=== PATIENT | male | born 1935 | race Caucasian/White ===

== ENCOUNTER 2018-02-24 09:49 | Inpatient (IN) | payer OTHER ==
[2018-02-11 14:24] VITALS: BMI 18.0
--- NOTE | 2018-02-11 14:50 | PAT Medication Instructions ---
Service Date Feb 11, 2018. Current Home Medication List Amlodipine (Norvasc), 5 MG PO QAM Benazepril (Lotensin), 10 MG PO QAM Finasteride (Proscar), 5 MG PO QAM Multiple Vitamin (Multivitamin), 1 TAB PO QAM Medication Instructions For Your Scheduled Surgery - Hold the following medications the morning of surgery: Multiple Vitamin (Multivitamin), 1 TAB PO QAM Benazepril (Lotensin), 10 MG PO QAM - Take the following medications the morning of surgery with a sip of water: Amlodipine (Norvasc), 5 MG PO QAM Finasteride (Proscar), 5 MG PO QAM If you have any questions please call us at [phone] or [phone] or [phone]
--- NOTE | 2018-02-11 15:30 | DIAGNOSTIC IMAGING REPORT ---
CHEST 2 VIEWS ROUTINE CLINICAL HISTORY: Preoperative chest COMPARISON STUDY: No previous studies for comparison. FINDINGS: The patient is hyperinflated. Pulmonary emphysema is suspected. There is no focal pulmonary consolidation. There is no failure. There are no pleural effusions. The heart is normal in size.[ IMPRESSION: No active disease in the chest. Electronically signed by: Howard Edouard M.D. 02/11/2018 3:29 PM Dictated Date/Time: 02/11/2018 3:29 PM
[2018-02-11 15:44] LABS: BASO % 0.6 %; BASO ABS # 0.03 K/uL (0-0.2); EOS % 1.7 %; EOS ABS # 0.09 K/uL (0-0.5); HEMATOCRIT 42.7 % (42-52); HEMOGLOBIN 14.3 g/dL (14.0-18.0); IG# 0.01 K/uL (0.00-0.02); LYMPH % 16.6 %; LYMPH ABS # 0.89 K/uL (1.2-3.4); MEAN CELL VOLUME 90.5 fL (80-100); MEAN CORPUSCULAR HEMOGLOBIN 30.3 pg (25-34); MEAN CORPUSCULAR HGB CONC 33.5 g/dl (32-36); MEAN PLATELET VOLUME 11.2 fL (7.4-10.4); MONO % 10.8 %; MONO ABS # 0.58 K/uL (0.11-0.59); NEUT % 70.1 %; NEUT ABS # 3.76 K/uL (1.4-6.5); PLATELET COUNT 235 K/uL (130-400); RED CELL DISTRIBUTION WIDTH SD 46.5 fL (36.4-46.3); WHITE BLOOD COUNT 5.36 K/uL (4.8-10.8)
[2018-02-11 16:00] LABS: CALCIUM 9.2 mg/dl (8.5-10.1); CREATININE 0.99 mg/dl (0.60-1.40); POTASSIUM 4.2 mmol/L (3.5-5.1)
[2018-02-11 16:04] LABS: PTT PATIENT 25.9 SECONDS (21.0-31.0)
[2018-02-12 06:05] LABS: HEMOGLOBIN A1C 5.7 % (4.5-5.6)
--- NOTE | 2018-02-23 14:41 | History and Physical ---
History & Physical Date Feb 23, 2018. Chief Complaint Left hip pain and DJD History of Present Illness The patient is a 83 year old male with complaints of severe left hip pain and DJD which is failed conservative outpatient treatment measures to this point includes anti-inflammatories and a home walking exercise program. Patient's symptoms have progressed to the point where they are interfering with most daily activities and he no longer tolerate exercise programs. The pain and limited motion made it difficult to perform their activities of daily living. They continue to have swelling and painful limited range of motion with crepitation. There failed all forms of conservative treatments to this point and they are requesting to proceed with total hip replacement surgery. Past Medical/Surgical History Past medical history Hypertension BPH Allergies Coded Allergies: NO KNOWN DRUG ALLERGIES (Verified Allergy, Unknown, ., 02/24/18) Home Medications Scheduled Amlodipine (Norvasc), 5 MG PO QAM Benazepril (Lotensin), 10 MG PO QAM Finasteride (Proscar), 5 MG PO QAM Multiple Vitamin (Multivitamin), 1 TAB PO QAM Physical Examination Skin: warm/dry, no rash Eyes: normal inspection, EOMI, sclerae normal ENT: normal ENT inspection, pharynx normal Head: normocephalic, atraumatic Neck: supple, no adenopathy, trachea midline Respiratory/Chest: lungs clear, normal breath sounds, no respiratory distress Cardiovascular: regular rate, rhythm, no edema, no murmur Abdomen / GI: normal bowel sounds, non tender Back: normal inspection Extremities: + pertinent finding (Left lower extremity is neurovascular sensory intact, + EHL/FHL/TA/GS, +2 dorsalis pedis pulse, limited, painful passive and active range of motion of the left hip.) Neurologic/Psych: no motor/sensory deficits, alert, normal reflexes, oriented x 3 Diagnosis Severe left hip DJD Plan of Treatment I have indicated the patient for left anterior total hip arthroplasty. The risks benefits and complications of procedure include but not limited to infections, acute blood loss, blood clots, injury to surrounding nerves, vessels , bone and soft tissue, hip dislocation, leg length discrepancy, chronic pain, loss of function, need for additional surgery, loosening of the prosthesis, cardiac and pulmonary events and . Patient wished to proceed with surgical intervention and informed consent was obtained at this time. Appropriate medical clearances were obtained by his PCP. Postoperatively we will plan for aspirin twice daily for DVT prophylaxis. Postoperatively we will plan for home with home care upon discharge. Multiple views of the left hip demonstrate severe left hip DJD with complete loss of the joint space, there is significant osteophytes, sclerosis and subchondral cyst.
[~2018-02-24] VITALS: Ht 182.9 cm; Wt 62.4 kg
[2018-02-24] VITALS (7 sets, daily range): BP systolic 128–169; BP diastolic 62–82; PULSE 63–80; TEMP 35.7–36.9; O2SAT 98–100; BMI 18.0
[2018-02-24] MEDS: ROPIVACAINE 5MG/ML 30 ML 150 MG, BUPIVACAINE 0.5% MPF INJ 30 ML, EpINEphrine HCL INJ 0.... INFIL SCH ×16 (06:00→15:05)
[~2018-02-24 09:49] MED LIST: ACETAMINOPHEN 500 MG TAB PO SCH; AMLO5TAB3 PO; BENA10TA10 PO; BUPIVACAINE 0.5 % 5 MG/1 ML PF 10ML VIAL ONE; CEFAZOLIN 1000MG IV PUSH 7.5 ML IV SCH; CeleBREX 200 MG CAP PO SCH; DEXAMETHASONE 4 MG TAB PO SCH; FINA5TAB PO; GABAPENTIN 300 MG CAP PO SCH; LACTATED RINGER'S 1000ML 1,000 ML IV SCH; LACTATED RINGER'S 1000ML 500 ML IV SCH; METOCLOPRAMIDE HCL 10 MG TAB PO SCH; MULTTAB58 PO; ROPIVACAINE 5MG/ML 30 ML 150 MG, BUPIVACAINE 0.5% MPF INJ 30 ML, EpINEphrine HCL INJ 0.... INFIL SCH
[2018-02-24] MEDS ORDERED: FENTANYL CITRATE INJ 50 MCG/1 ML 2 ML VIAL ONE (10:01)
[2018-02-24] MEDS ORDERED: MIDAZOLAM HCL 1 MG/ML 2ML VIAL ONE (10:01)
[2018-02-24] MEDS ORDERED: PHENYLEPHRINE 100MCG/ML 5ML SYR ONE (10:01)
[2018-02-24] MEDS ORDERED: LIDOCAINE HCL 2% 2 ML VIAL (20MG/ML) ONE (10:01)
[2018-02-24] MEDS ORDERED: PROPOFOL IV EMULSION 10 MG/ML 20 ML VIAL ONE (10:01)
[2018-02-24] MEDS ORDERED: EpHEDrine SULFATE 50MG/5ML SYR ONE (10:01)
--- NOTE | 2018-02-24 12:11 | History & Physical Bridge Note ---
H&P Re-Evaluation Bridge Note: I have examined the patient, reviewed the History & Physical and in the interval since the performance of the History & Physical I have noted the following changes of clinical significance: No changes noted
[2018-02-24] MEDS ORDERED: ORTHO JOINT ANESTHETIC ONE (12:25)
[2018-02-24] MEDS ORDERED: BACITRACIN 50000 UNIT VIAL ONE (12:26)
[2018-02-24] MEDS ORDERED: POVIDONE-IODINE OP SOLN 30 ML BTL ONE (12:26)
[2018-02-24] MEDS: TRANEXAMIC ACID INJ 1,000 MG x 2 Bags IV SCH ×4 (12:33→17:50)
[2018-02-24] MEDS ORDERED: EpHEDrine SULFATE INJ 50 MG/ML AMP ONE (13:47)
--- NOTE | 2018-02-24 15:19 | [facility] Post Operative Brief Note ---
Immediate Operative Summary Operative Date Feb 24, 2018. Pre-Operative Diagnosis Severe Left Hip Degenerative Joint Disease Post-Operative Diagnosis Severe Left Hip Degenerative Joint Disease Procedure(s) Performed left anterior TONNY Surgeon Dr. Zimmerman Reservations Agent Surgeon(s) Vineet Wooten PA-C Estimated Blood Loss 125ML Findings Consistent with Post-Op Diagnosis Fluids (cc crystalloids) 1500 Specimens A. Left femoral head Drains None Anesthesia Type MAC Spinal Regional Complication(s) none Disposition Disposition: Recovery Room / PACU Overlapping Procedure I was present for: the critical portions of procedure. I was immediately available: during the entire case Back up surgeon: was not required during procedure
[2018-02-24] MEDS ORDERED: MoRPHine SULFATE 2 MG/ML CARP IV PRN (15:30)
[2018-02-24] MEDS ORDERED: ONDANSETRON INJ 2 MG/ML 2 ML VIAL IV PRN (15:30)
[2018-02-24] MEDS ORDERED: OXYCODONE HCL IR 5 MG TAB (IMMEDIATE RELEASE) PO PRN (15:30)
--- NOTE | 2018-02-24 15:41 | [facility] Operative Report ---
Operative Report Operative Date Feb 24, 2018. Pre-Operative Diagnosis Severe Left Hip Degenerative Joint Disease Post-Operative Diagnosis Severe Left Hip Degenerative Joint Disease Procedure(s) Performed left anterior TONNY Surgeon Dr. Zimmerman Quality Assurance Analyst Surgeon(s) Vineet Wooten PA-C Estimated Blood Loss 125ML Findings See dictated op note Fluids 1500 Specimens A. Left femoral head Drains None Anesthesia Type MAC Spinal Regional Complication(s) none Disposition Recovery Room / PACU Indications The patient is a 83-year-old male who presents with severe progressive left hip DJD who has failed outpatient conservative treatments. I indicated the patient for a anterior total hip replacement and the risks and benefits were explained in detail which include but not limited to infection, bleeding, blood clot, damage to surrounding bone, nerves, vessels, soft tissue, hip dislocation, failure of the prosthesis, leg length discrepancy, need for additional surgery and . The patient agreed to proceed with replacement of the hip and informed consent was obtained. Appropriate clearances were obtained. Description of Procedure COMPONENTS USED: [employer] hip system: Acetabulum size 52, femur size 10 standard offset, femoral head 36+0, liner 3652, acetabular screw 25. DESCRIPTION OF PROCEDURE: Following satisfactory spinal anesthesia, the patient was placed supine on the OR table. The right leg was placed in the well leg gallegos and the left leg in the traction device. The left leg was prepared with ChloraPrep and draped sterilely. Following a surgical time-out, an anterior approach in the interval between the sartorius and tensor muscles was completed. Circumflex femoral vessels were identified, tied and ligated. The anterior capsular fat pad was removed and the capsulotomy was performed revealing the arthritic femoral neck and head. A femoral neck cut was made with reciprocating saw and the bone fragments removed. The acetabular self- retraining retractor was placed. Acetabular reaming was completed under fluoroscopic guidance, a 52 shell was impacted into an anatomic position and secured with a dome screw. Local anesthetic was placed and following irrigation , the polyethylene liner was placed. The femur was placed into position of external rotation, extension and adduction. Femoral canal was prepared up to the size 10 standard offset. Trial reduction with a +0 neck length head showed good soft tissue tension, leg lengths restored, and good fit and fill of the proximal canal using fluoroscopic landmarks. The hip was dislocated. The trial component was removed. The final implant was placed. The hip was irrigated with sterile saline soluation and reduced. A Betadine soak was performed. After 3 minutes, the hip was once more irrigated with copious sterile saline solution with bacitracin. Stephanie- incisional soft tissue was injected utilizing [place] [facility] which includes a combination of Ropivicaine 0.5% 150mg, Bupivicaine 0.5%/Epinephrine 1 :200,000 30ml, Toradol 30mg, Dexamethasone 4mg, Ketamine 10mg, Clonidine 100mcg and NSS 30ml solution. The capsule was then closed with 1-0 Vicryl interrupted figure of eight sutures. The fascia was closed with a running suture of #1 Vicryl, the subcutaneous tissues with 2-0 Vicryl and the skin with a running subcuticular stitch of 3-0 V-Loc. Dermabond prineo and a dry dressing were applied. The patient tolerated the procedure well and was transported to PACU in stable condition. Due to the complex nature of the procedure, the entire surgery was performed with the operational assistance of Vineet Wooten PA-C. The assistant head cashier, under direct supervision, was involved in the actual performance of all aspects of the surgical procedure including patient positioning, hemostasis, tissue retraction, instrument management and wound closure. I attest to the content of the Intraoperative Record and any orders documented therein. Any exceptions are noted below.
[2018-02-24] MEDS ORDERED: EpHEDrine SULFATE INJ 50 MG/ML AMP IV PRN (16:00)
[2018-02-24] MEDS ORDERED: ATROPINE SULFATE 0.1 MG/ML 5ML SYR IV PRN (16:00)
--- NOTE | 2018-02-24 16:11 | DIAGNOSTIC IMAGING REPORT ---
L PELVIS/UNILATERAL HIP 1 VIEW CLINICAL HISTORY: IN PACU - A/P PELVIS and LATERAL HIP INCLUDING ALL OF IMPLANT joint replacement COMPARISON: None. DISCUSSION: Anatomic alignment post total left hip arthroplasty. Expected soft tissue postoperative changes. IMPRESSION: Anatomic alignment post total left hip arthroplasty. The above report was generated using voice recognition software. It may contain grammatical, syntax or spelling errors. Electronically signed by: Bala Arenas M.D. 02/24/2018 4:09 PM Dictated Date/Time: 02/24/2018 4:09 PM
--- NOTE | 2018-02-24 16:12 | Orthopedic Progress Note ---
Orthopedic Progress Note Date of Service Feb 24, 2018. Subjective Additional Notes: Postoperative progress note The patient was seen in PACU, comfortable, denies pain at this time, no acute issues, still feeling the effects of spinal anesthesia. Objective No apparent distress, alert and oriented 3 Physical exam: Limited secondary to spinal anesthesia Left lower extremity +2 dorsalis pedis pulse, compartments soft nontender, incisional VAC dressing clean dry and intact. Date Time Temp Pulse Resp B/P (MAP) Pulse Ox O2 Delivery O2 Flow Rate FiO2 02/24/18 16:06 137/69 02/24/18 16:03 72 18 100 02/24/18 16:03 75 18 02/24/18 16:01 140/72 02/24/18 15:58 73 15 02/24/18 15:58 73 15 99 02/24/18 15:56 138/67 02/24/18 15:53 79 17 02/24/18 15:53 79 17 100 02/24/18 15:51 143/69 02/24/18 15:49 138/66 02/24/18 15:48 36.9 78 16 138/66 (83) 100 Oxymask 10 02/24/18 10:15 36.9 80 20 169/82 98 Room Air Assessment & Plan Assessment: Status post left anterior total hip arthroplasty Plan: -Ancef 24 -DVT prophylaxis aspirin twice daily -Weight-bear as tolerates left lower extremity -PT OT -Postoperative x-ray demonstrate a well aligned well fixed total hip prosthesis without fracture dislocation -A.m. labs -DC planning
--- NOTE | 2018-02-24 16:31 | Anesthesiology Progress Note ---
Anesthesia Post Op Note Date & Time Feb 24, 2018 at 16:31 Vital Signs Pain Intensity: 0 Vital Signs Past 12 Hours Date Time Temp Pulse Resp B/P (MAP) Pulse Ox O2 Delivery O2 Flow Rate FiO2 02/24/18 16:16 140/66 02/24/18 16:13 75 19 02/24/18 16:13 77 19 100 02/24/18 16:11 127/68 02/24/18 16:10 37.0 73 17 140/66 (91) 100 Nasal Cannula 2 02/24/18 16:08 71 17 100 02/24/18 16:08 71 17 02/24/18 16:07 73 17 100 02/24/18 16:07 72 17 02/24/18 16:06 137/69 02/24/18 16:03 72 18 100 02/24/18 16:03 75 18 02/24/18 16:01 140/72 02/24/18 15:58 73 15 02/24/18 15:58 73 15 99 02/24/18 15:56 138/67 02/24/18 15:53 79 17 02/24/18 15:53 79 17 100 02/24/18 15:51 143/69 02/24/18 15:49 138/66 02/24/18 15:48 36.9 78 16 138/66 (83) 100 Oxymask 10 02/24/18 10:15 36.9 80 20 169/82 98 Room Air Notes Mental Status: alert / awake / arousable, participated in evaluation Pt Amnestic to Procedure: Yes Nausea / Vomiting: adequately controlled Pain: adequately controlled Airway Patency, RR, SpO2: stable & adequate BP & HR: stable & adequate Hydration State: stable & adequate Neuraxial Anesthesia: was administered, sensory block is resolving Anesthetic Complications: no major complications apparent
--- NOTE | 2018-02-24 16:55 | DIAGNOSTIC IMAGING REPORT ---
L HIP UNILATERAL 1 VIEW CLINICAL HISTORY: LT ANTERIOR TOTAL joint replacement COMPARISON: None. DISCUSSION: Anatomic alignment post left hip total arthroplasty. Expected postoperative soft tissue change. IMPRESSION: Anatomic alignment post total left hip arthroplasty. The above report was generated using voice recognition software. It may contain grammatical, syntax or spelling errors. Electronically signed by: Bala Arenas M.D. 02/24/2018 4:53 PM Dictated Date/Time: 02/24/2018 4:53 PM
[2018-02-24] MEDS: KETOROLAC TROMETHAMINE 15 MG/ML VIAL IV. SCH (18:21)
[2018-02-24] MEDS: SODIUM CHLORIDE 0.9% 1000ML 1,000 ML IV SCH (19:50)
[2018-02-24] MEDS: ASPIRIN 325 MG ECTAB PO SCH (20:56)
[2018-02-24] MEDS: SENNA 8.6 MG TAB PO SCH (20:57)
[2018-02-24] MEDS: DOCUSATE SODIUM 100 MG CAP PO SCH (20:57)
[2018-02-24] MEDS: ACETAMINOPHEN 500 MG TAB PO SCH (20:57)
[2018-02-24] MEDS: CEFAZOLIN IV 1,000 MG in SYRINGE 0 ML IV SCH (20:57)
[2018-02-25] MEDS: KETOROLAC TROMETHAMINE 15 MG/ML VIAL IV. SCH ×3 (00:03→12:43)
[2018-02-25 03:52] VITALS: BP 156/62; PULSE 75; TEMP 36.5; O2SAT 100
[2018-02-25] MEDS: CEFAZOLIN IV 1,000 MG in SYRINGE 0 ML IV SCH (05:26)
[2018-02-25] MEDS: ACETAMINOPHEN 500 MG TAB PO SCH ×3 (05:27→21:14)
[2018-02-25] MEDS: SODIUM CHLORIDE 0.9% 1000ML 1,000 ML IV SCH (05:27)
[2018-02-25 07:13] LABS: BASO % 0.1 %; BASO ABS # 0.01 K/uL (0-0.2); HEMOGLOBIN 12.6 g/dL (14.0-18.0); IG# 0.04 K/uL (0.00-0.02); LYMPH % 3.6 %; LYMPH ABS # 0.43 K/uL (1.2-3.4); MEAN CELL VOLUME 89.6 fL (80-100); MEAN CORPUSCULAR HEMOGLOBIN 29.7 pg (25-34); MEAN CORPUSCULAR HGB CONC 33.2 g/dl (32-36); MEAN PLATELET VOLUME 11.3 fL (7.4-10.4); MONO % 7.5 %; NEUT % 88.5 %; NEUT ABS # 10.68 K/uL (1.4-6.5); PLATELET COUNT 213 K/uL (130-400); RED CELL DISTRIBUTION WIDTH SD 45.8 fL (36.4-46.3); WHITE BLOOD COUNT 12.06 K/uL (4.8-10.8)
[2018-02-25 07:18] VITALS: BP 146/69; PULSE 69; TEMP 36.6; O2SAT 99
[2018-02-25 07:19] LABS: INR 1.1 (0.9-1.1)
[2018-02-25 07:45] LABS: CALCIUM 8.6 mg/dl (8.5-10.1); CREATININE 0.99 mg/dl (0.60-1.40); POTASSIUM 4.5 mmol/L (3.5-5.1)
--- NOTE | 2018-02-25 08:03 | Orthopedic Progress Note ---
Orthopedic Progress Note Date of Service Feb 25, 2018. Subjective Post OP Day: 1 Reports: feeling well, complaints (mild burning on urination), Denies: chest pain, SOB, nausea / vomiting, light headedness, calf pain Objective calves soft nontender, N/V intact, hip located, dressing C/D/I, A&O x3, toes mobile Date Time Temp Pulse Resp B/P (MAP) Pulse Ox O2 Delivery O2 Flow Rate FiO2 02/25/18 07:18 36.6 69 16 146/69 (94) 99 Room Air 02/25/18 03:52 36.5 75 16 156/62 (93) 100 Room Air 02/25/18 00:05 Room Air 02/24/18 23:21 36.7 63 16 143/69 (93) 100 Room Air 02/24/18 19:50 72 15 128/65 (86) 100 Room Air 02/24/18 18:54 36.3 68 18 130/71 (90) 100 Nasal Cannula 2.0 02/24/18 17:49 36.4 74 17 137/62 (87) 100 Nasal Cannula 2.0 02/24/18 17:15 35.7 76 16 143/69 (93) 100 Nasal Cannula 2.0 02/24/18 16:45 36.4 71 16 144/69 (94) 99 Nasal Cannula 2.0 02/24/18 16:45 99 Nasal Cannula 2.0 02/24/18 16:45 99 Nasal Cannula 2.0 02/24/18 16:37 75 100 02/24/18 16:37 75 02/24/18 16:36 133/73 02/24/18 16:32 73 12 100 02/24/18 16:32 73 12 02/24/18 16:31 133/66 02/24/18 16:27 75 16 100 02/24/18 16:27 75 16 02/24/18 16:26 136/65 02/24/18 16:22 71 16 02/24/18 16:22 71 16 100 02/24/18 16:21 137/65 02/24/18 16:17 72 14 02/24/18 16:17 72 14 100 02/24/18 16:16 140/66 02/24/18 16:13 75 19 02/24/18 16:13 77 19 100 02/24/18 16:11 127/68 02/24/18 16:10 37.0 73 17 140/66 (91) 100 Nasal Cannula 2 02/24/18 16:08 71 17 100 02/24/18 16:08 71 17 02/24/18 16:07 73 17 100 02/24/18 16:07 72 17 02/24/18 16:06 137/69 02/24/18 16:03 72 18 100 02/24/18 16:03 75 18 02/24/18 16:01 140/72 02/24/18 15:58 73 15 02/24/18 15:58 73 15 99 02/24/18 15:56 138/67 02/24/18 15:53 79 17 02/24/18 15:53 79 17 100 02/24/18 15:51 143/69 02/24/18 15:49 138/66 02/24/18 15:48 36.9 78 16 138/66 (83) 100 Oxymask 10 02/24/18 10:15 36.9 80 20 169/82 98 Room Air Laboratory Results 24 Hours: Test 02/25/18 06:28 White Blood Count 12.06 K/uL Red Blood Count 4.24 M/uL Hemoglobin 12.6 g/dL Hematocrit 38.0 % Mean Corpuscular Volume 89.6 fL Mean Corpuscular Hemoglobin 29.7 pg Mean Corpuscular Hemoglobin Concent 33.2 g/dl Platelet Count 213 K/uL Mean Platelet Volume 11.3 fL Neutrophils (%) (Auto) 88.5 % Lymphocytes (%) (Auto) 3.6 % Monocytes (%) (Auto) 7.5 % Eosinophils (%) (Auto) 0.0 % Basophils (%) (Auto) 0.1 % Neutrophils # (Auto) 10.68 K/uL Lymphocytes # (Auto) 0.43 K/uL Monocytes # (Auto) 0.90 K/uL Eosinophils # (Auto) 0.00 K/uL Basophils # (Auto) 0.01 K/uL Prothromb Time International Ratio 1.1 Prothrombin Time 11.4 SECONDS Assessment & Plan Assessment: POD 1 s/p Left TONYN Plan: -Ancef 24 -DVT prophylaxis aspirin twice daily -Weight-bear as tolerates left lower extremity -PT OT -DC planning - HH Inhouse Planning Pain Management: Celebrex, Toradol, Morphine, Oxy IR DVT Prophylaxis: TEDs, SCDs, ASA Discharge Planning Discharge Planning: home with home health
[2018-02-25] MEDS: PANTOprazole SOD 40 MG TAB PO SCH (08:14)
[2018-02-25] MEDS: DOCUSATE SODIUM 100 MG CAP PO SCH ×2 (08:14→21:00)
[2018-02-25] MEDS: FINASTERIDE 5 MG TAB PO SCH (08:14)
[2018-02-25] MEDS: BENAZEPRIL HCL 10 MG TAB PO SCH (08:14)
[2018-02-25] MEDS: MULTIVITAMIN TAB PO SCH (08:15)
[2018-02-25] MEDS: AMLODIPINE BESYLATE 5 MG TAB PO SCH (08:15)
[2018-02-25] MEDS: ASPIRIN 325 MG ECTAB PO SCH ×2 (08:15→21:13)
--- NOTE | 2018-02-25 09:57 | Anesthesiology Progress Note ---
Anesthesia Post Op Note Date & Time Feb 25, 2018 at 09:56 Vital Signs Pain Intensity: 0.0 Vital Signs Past 12 Hours Date Time Temp Pulse Resp B/P (MAP) Pulse Ox O2 Delivery O2 Flow Rate FiO2 02/25/18 07:18 36.6 69 16 146/69 (94) 99 Room Air 02/25/18 03:52 36.5 75 16 156/62 (93) 100 Room Air 02/25/18 00:05 Room Air 02/24/18 23:21 36.7 63 16 143/69 (93) 100 Room Air Notes Mental Status: alert / awake / arousable, participated in evaluation Pt Amnestic to Procedure: Yes Nausea / Vomiting: adequately controlled Pain: adequately controlled Airway Patency, RR, SpO2: stable & adequate BP & HR: stable & adequate Hydration State: stable & adequate Neuraxial Anesthesia: sensory block resolved Anesthetic Complications: no major complications apparent
[2018-02-25 10:04] VITALS: Ht 182.9 cm; Wt 62.4 kg
[2018-02-25] MEDS ORDERED: NURSING VERBAL MED ORDER ONE (11:00)
[2018-02-25 11:55] VITALS: BP 159/68; PULSE 82; TEMP 36.4; O2SAT 99
[2018-02-25 15:52] VITALS: BP 148/63; PULSE 83; TEMP 36.6; O2SAT 97
[2018-02-25] MEDS ORDERED: GLUCOSE 40% GEL 15 GM TUBE PO PRN (16:45)
[2018-02-25] MEDS ORDERED: CARBOHYDRATES FOR HYPOGLYCEMIA PO PRN (16:45)
[2018-02-25] MEDS ORDERED: DEXTROSE 50% 50 ML SYR IV PRN (16:45)
[2018-02-25] MEDS ORDERED: GLUCOSE 10 TABS/TUBE PO PRN (16:45)
[2018-02-25] MEDS ORDERED: GLUCAGON FOR INJ 1 MG VIAL SQ PRN (16:45)
--- NOTE | 2018-02-25 17:00 | Medical Consult ---
Consultation Date of Consultation: Feb 25, 2018. Attending Physician: Dandy Zimmerman D.O. 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 Zimmerman. He had no postoperative complications. 125ml of blood loss was estimated. Patient denies history of diabetes mellitus as well as family history. Denies fever, chills, sweats, lightheadedness, dizziness, chest pain, shortness of breath, cough, nausea, vomiting, diarrhea. He had normal bowel movement today. Starting last evening he did have increased frequency, urgency with urination and dysuria. UA was obtained and was negative. Nursing noted 600 cc retained urine, patient with straight cath. He noted ever since straight cath he no longer is having frequency, urgency and dysuria. Appetite is good. He ambulated around unit 2 today. Denies left hip pain. "I was supposed to go home today, but my blood sugar was high." Fasting glucose this a.m. was greater than 200, most recent 175. A1c was 5.7. We have been consulted secondary to new onset hyperglycemia. 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) Allergies Coded Allergies: NO KNOWN DRUG ALLERGIES (Verified Allergy, Unknown, ., 02/24/18) Home Medications Active Reported Multivitamin (Multiple Vitamin) 1 Tab Tab 1 Tab PO QAM Proscar (Finasteride) 5 Mg Tab 5 Mg PO QAM Lotensin (Benazepril HCl) 10 Mg Tab 10 Mg PO QAM Norvasc (Amlodipine Besylate) 5 Mg Tab 5 Mg PO QAM Current Inpatient Medications Current Inpatient Medications Medications (Trade) Dose Ordered Sig/Dennys Route Start Time Stop Time Status Last Admin Dose Admin Amlodipine Besylate (Norvasc Tab) 5 mg QAM PO 02/25/18 09:00 03/27/18 08:59 02/25/18 08:15 5 MG Finasteride (Proscar Tab) 5 mg QAM PO 02/25/18 09:00 03/27/18 08:59 02/25/18 08:14 5 MG Benazepril HCl (Lotensin Tab) 10 mg QAM PO 02/25/18 09:00 03/27/18 08:59 02/25/18 08:14 10 MG Ketorolac Tromethamine (Toradol Inj) 15 mg Q6H IV. 02/24/18 18:00 02/25/18 17:59 02/25/18 12:43 15 MG Celecoxib (CeleBREX CAP) 200 mg BID PO 02/26/18 09:00 03/28/18 08:59 Oxycodone HCl (Roxicodone Immediate Rel Tab) 1 TABLET FOR PAIN RATING... Q4H PRN PO 02/24/18 15:30 03/10/18 15:29 Morphine Sulfate (MoRPHine SULFATE INJ) 2 mg Q4H PRN IV 02/24/18 15:30 03/10/18 15:29 Acetaminophen (Tylenol Tab) 1,000 mg Q8H PO 02/24/18 22:00 03/26/18 21:59 02/25/18 12:44 1,000 MG Senna (Senokot Tab) 17.2 mg HS PO 02/24/18 21:00 03/26/18 20:59 02/24/18 20:57 17.2 MG Docusate Sodium (coLACE CAP) 100 mg BID PO 02/24/18 21:00 03/26/18 20:59 02/25/18 08:14 100 MG Diphenhydramine HCl (Benadryl Cap) 25 mg Q8H PRN PO 02/24/18 15:30 03/26/18 15:29 Multivitamins (Multivitamin Tab) 1 tab QAM PO 02/25/18 09:00 03/27/18 08:59 02/25/18 08:15 1 TAB Ondansetron HCl (Zofran Inj) 4 mg Q6H PRN IV 02/24/18 15:30 03/26/18 15:29 Pantoprazole Sodium (Protonix Tab) 40 mg QAM PO 02/25/18 09:00 02/28/18 09:01 02/25/18 08:14 40 MG Aspirin (Ecotrin Tab) 325 mg BID PO 02/24/18 21:00 03/26/18 20:59 02/25/18 08:15 325 MG Review of Systems As noted per HPI, 10 systems reviewed and negative unless noted above. Physical Exam Date Time Temp Pulse Resp B/P (MAP) Pulse Ox O2 Delivery O2 Flow Rate FiO2 02/25/18 15:52 36.6 83 16 148/63 (91) 97 Room Air 02/25/18 11:55 36.4 82 16 159/68 (98) 99 Room Air 02/25/18 08:00 Room Air 02/25/18 07:18 36.6 69 16 146/69 (94) 99 Room Air 02/25/18 03:52 36.5 75 16 156/62 (93) 100 Room Air 02/25/18 00:05 Room Air 02/24/18 23:21 36.7 63 16 143/69 (93) 100 Room Air 02/24/18 19:50 72 15 128/65 (86) 100 Room Air 02/24/18 18:54 36.3 68 18 130/71 (90) 100 Nasal Cannula 2.0 02/24/18 17:49 36.4 74 17 137/62 (87) 100 Nasal Cannula 2.0 02/24/18 17:15 35.7 76 16 143/69 (93) 100 Nasal Cannula 2.0 02/24/18 16:45 36.4 71 16 144/69 (94) 99 Nasal Cannula 2.0 02/24/18 16:45 99 Nasal Cannula 2.0 02/24/18 16:45 99 Nasal Cannula 2.0 02/24/18 16:37 75 100 02/24/18 16:37 75 02/24/18 16:36 133/73 General Appearance: no apparent distress, + thin (Tall, Male) Head: normocephalic, atraumatic Eyes: normal inspection, sclerae normal ENT: normal ENT inspection, hearing grossly normal, + pertinent finding ( mucous membranes moist) Neck: supple, no adenopathy, thyroid normal, no JVD, no carotid bruits Respiratory/Chest: chest non-tender, lungs clear, normal breath sounds, no respiratory distress, no accessory muscle use Cardiovascular: regular rate, rhythm, no edema, no JVD, no murmur, normal peripheral pulses (b/l SCDS in placed) Abdomen/GI: normal bowel sounds, non tender, soft, no organomegaly Back: normal inspection, no muscle spasm Extremities/Musculoskelatal: + pertinent finding (+ Anterior Left wound vac in placed) Neurologic/Psych: 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, alert, normal mood/affect, oriented x 3 Skin: normal color, no rash Laboratory Results Last 24 Hours Test 02/25/18 06:28 02/25/18 09:20 02/25/18 12:16 White Blood Count 12.06 K/uL Red Blood Count 4.24 M/uL Hemoglobin 12.6 g/dL Hematocrit 38.0 % Mean Corpuscular Volume 89.6 fL Mean Corpuscular Hemoglobin 29.7 pg Mean Corpuscular Hemoglobin Concent 33.2 g/dl Platelet Count 213 K/uL Mean Platelet Volume 11.3 fL Neutrophils (%) (Auto) 88.5 % Lymphocytes (%) (Auto) 3.6 % Monocytes (%) (Auto) 7.5 % Eosinophils (%) (Auto) 0.0 % Basophils (%) (Auto) 0.1 % Neutrophils # (Auto) 10.68 K/uL Lymphocytes # (Auto) 0.43 K/uL Monocytes # (Auto) 0.90 K/uL Eosinophils # (Auto) 0.00 K/uL Basophils # (Auto) 0.01 K/uL RDW Standard Deviation 45.8 fL RDW Coefficient of Variation 14.0 % Immature Granulocyte % (Auto) 0.3 % Immature Granulocyte # (Auto) 0.04 K/uL Prothrombin Time 11.4 SECONDS Prothromb Time International Ratio 1.1 Sodium Level 137 mmol/L Potassium Level 4.5 mmol/L Chloride Level 105 mmol/L Carbon Dioxide Level 25 mmol/L Anion Gap 7.0 mmol/L Blood Urea Nitrogen 22 mg/dl Creatinine 0.99 mg/dl Est Creatinine Clear Calc Drug Dose 49.0 ml/min Estimated GFR () 80.7 Estimated GFR (Non- 69.6 BUN/Creatinine Ratio 22.1 Random Glucose 210 mg/dl Calcium Level 8.6 mg/dl Urine Color YELLOW Urine Appearance CLEAR Urine pH 5.0 Urine Specific [place] 1.020 Urine Protein NEG Urine Glucose (UA) 1+ Urine Ketones NEG Urine Occult Blood NEG Urine Nitrite NEG Urine Bilirubin NEG Urine Urobilinogen NEG Urine Leukocyte Esterase NEG Bedside Glucose 175 mg/dl Assessment & Plan This is an 83-year-old white male who has significant PMH of HTN, BPH, 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 Zimmerman. He denies history of diabetes mellitus. A1c checked today was 5.7. We have been consulted for postoperative hyperglycemia. S/P L TONNY secondary to end stage OADJD POD #1 -Pain/wound management per Ortho -Continue incentive spirometry -ASA 325 twice daily for VT prophylaxis -Continue PT Postoperative hyperglycemia secondary to steroids A1C 5.7 -Etiology includes steroid-induced secondary to Decadron preop, stress of operation, infection -Infection appears less likely although WBC elevated to 12. Afebrile, UA is negative, saturating well on room air with no respiratory complaints and Anterior VAC intact -Add insulin sliding scale and monitor blood sugars accordingly -Recommend follow-up with PCP in 3 months for repeat A1c -repeat labs in a.m. Hypertension bp on high side, most likely secondary to pain. Monitor -Continue amlodipine and benazepril BPH -Continue Proscar -Continue as needed bladder scan as well as straight cath -UA negative for infection -Consider adding Pyridium if dysuria continues DVT prophylaxis - ASA BID per ortho Attending addendum: The patient was seen and examined in medical floor He is a status post left TONNY with high blood sugar noted following surgery He denies to have any symptoms except pain at the operation site On examination No apparent distress at rest Hemodynamically stable Chest-clear to auscultate bilaterally Heart-S1-S2 no murmur appreciated Abdomen-soft, benign, nontender, no organomegaly Extremities-negative for any edema Labs, imaging studies reviewed Has hyperglycemia secondary to steroid Continue sliding-scale insulin coverage for now Will likely not require any antidiabetic medications to go Agree with assessment and plan as outlined above Dr. Herlinda Spain Thank you for this consultation. We will follow the patient with you during their hospital stay. You can reach a [facility]/02 via pager @ . Starting on 02/26/18 Dr. Perez will continue care of patient
[2018-02-25] MEDS: INSULIN ASPART 100 UNITS/ML 3 ML PEN SC SCH ×3 (19:00→21:00)
[2018-02-25] MEDS: SENNA 8.6 MG TAB PO SCH (21:00)
[2018-02-25 23:00] VITALS: BP 131/61; PULSE 83; TEMP 37.2; O2SAT 98
[2018-02-26] MEDS: ACETAMINOPHEN 500 MG TAB PO SCH ×2 (06:07→14:07)
[2018-02-26 07:20] VITALS: BP 168/67; PULSE 85; TEMP 36.9; O2SAT 97
[2018-02-26] MEDS: INSULIN ASPART 100 UNITS/ML 3 ML PEN SC SCH ×3 (08:00→12:00)
[2018-02-26] MEDS: MULTIVITAMIN TAB PO SCH (08:28)
[2018-02-26] MEDS: AMLODIPINE BESYLATE 5 MG TAB PO SCH (08:28)
[2018-02-26] MEDS: PANTOprazole SOD 40 MG TAB PO SCH (08:28)
[2018-02-26] MEDS: BENAZEPRIL HCL 10 MG TAB PO SCH (08:29)
[2018-02-26] MEDS: DOCUSATE SODIUM 100 MG CAP PO SCH (08:29)
[2018-02-26] MEDS: ASPIRIN 325 MG ECTAB PO SCH (08:29)
[2018-02-26] MEDS: FINASTERIDE 5 MG TAB PO SCH (08:30)
--- NOTE | 2018-02-26 08:58 | Orthopedic Progress Note ---
Orthopedic Progress Note Date of Service Feb 26, 2018. Subjective Reports: feeling well, complaints (urinary retention) Additional Notes: Pt states he thought he was doing well after being straight cathed yesterday. Was urinating on his own initially however as time progressed, he states he began having trouble urinating again. Tried several times over night but was "just dribbling". This AM nursing did a bladder scan which showed 900 + cc retained post void. Previous scan was around 800cc. Denies being uncomfortable but frustrated over not being able to go. States his knee feels fine this AM. No other complaints. Objective calves soft nontender, N/V intact, dressing C/D/I, A&O x3, toes mobile Date Time Temp Pulse Resp B/P (MAP) Pulse Ox O2 Delivery O2 Flow Rate FiO2 02/26/18 08:42 Room Air 02/26/18 07:20 36.9 85 18 168/67 (100) 97 Room Air 02/25/18 23:00 37.2 83 16 131/61 (84) 98 Room Air 02/25/18 19:45 Room Air 02/25/18 15:52 36.6 83 16 148/63 (91) 97 Room Air 02/25/18 11:55 36.4 82 16 159/68 (98) 99 Room Air Assessment & Plan Assessment: POD 2 s/p Left TONNY Urinary Retention/ h/o BPH Hyperglycemia Plan: -Ancef 24 -DVT prophylaxis aspirin twice daily -Weight-bear as tolerates left lower extremity -PT OT -Place bennett catheter. Will consult Urology. -Medical management per [facility] Hospitalist appreciated -DC planning - Inhouse Planning Pain Management: Celebrex, Morphine, Oxy IR DVT Prophylaxis: TEDs, SCDs, ASA Discharge Planning Discharge Planning: home with home health
[2018-02-26] MEDS ORDERED: CeleBREX 200 MG CAP PO SCH (09:00)
[2018-02-26] MEDS ORDERED: CLB200 PO (09:05)
[2018-02-26] MEDS ORDERED: RXC5 PO (09:05)
[2018-02-26] MEDS ORDERED: SENN-61 PO (09:05)
[2018-02-26] MEDS ORDERED: ASPEC325 PO (09:05)
[2018-02-26] MEDS ORDERED: ACET-24 PO (09:05)
--- NOTE | 2018-02-26 09:11 | Discharge Instructions ---
Discharge Instructions Date of Service Feb 26, 2018. Admission Reason for Admission: Left Hip Osteoarthritis Discharge Discharge Diagnosis / Problem: Left Hip Osteoarthritis Discharge Goals Goal(s): Decrease discomfort, Improve function, Increase independence Activity Recommendations Activity Limitations: per Instructions/Follow-up section Weightbearing Status: Left weightbearing (as tolerated) . Instructions / Follow-Up Instructions / Follow-Up ACTIVITY RECOMMENDATIONS: SELF CARE INSTRUCTIONS AFTER TOTAL HIP REPLACEMENT : Direct Anterior Approach Until the incision and soft tissues around your hip have healed, there is a possibility that the hip prosthesis could dislocate. A. Hip flexion ( Up & Down out of chair or steps ) may be difficult. This is normal. B. Numbness in front of the thigh is also normal for a few weeks. C. Use hand rails when walking on stairs. D. Wear low heeled shoes with non-slip soles. E. Be sure that your floors are free of things that could trip you - throw rugs , electrical cords, small objects. Avoid wet and waxed floors, especially with crutches and canes. F. Try to walk several times a day with rest periods between. G. Continue with all the exercises taught to you in the hospital. Again, make walking a part of your daily routine. SPECIAL CARE INSTRUCTIONS: VERY IMPORTANT TO READ AND REVIEW A. You may still be at risk for phlebitis and blood clots. 1. Wear surgical stockings (DANIELE hose) for 2 weeks after surgery to improve circulation and reduce swelling. 2. Take Aspirin 325mg twice daily for 4 weeks or as directed by your doctor. This is your blood thinner. 3. High risk patients may be prescribed a stronger blood thinner if necessary. 4. If you are on Coumadin normally, your family doctor/sand cleaning machine operator should monitor your blood work. Expect a phone call the day of or the day after bloodwork is drawn to adjust your dosage. B. You must take antibiotics before having dental work, bladder, bowel and other surgery. Your doctor will provide you with a permanent card to carry describing precautions. C. Call [facility] if you have a fever, redness or swelling around the incision, cloudy drainage from incision, or sudden increase in pain in your hip, not relieved by your regular pain medication. D. Please call the office at if you have any concerns or questions about your operation or recovery. * YOU MAY SHOWER, NO TUB BATHS UNTIL CLEARED BY YOUR DOCTOR. - Keep an extra close eye on the top portion of your incision. Be sure to keep clean & dry. * WEAR DANIELE HOSE 20 HOURS PER DAY FOR 2 WEEKS. * YOU MAY PROGRESS FROM A WALKER, TO A CANE, TO INDEPENDENT AT YOUR OWN PACE. * MOST PATIENTS WILL HAVE HOME NURSING FOR THERAPY. IF YOU DECIDE TO DO OUTPATIENT PHYSICAL THERAPY, PLEASE SCHEDULE THIS 3 TIMES PER WEEK. * DERMABOND Prineo- This is a mesh tape dressing that is covered with glue. It should remain in place until the incision is properly healed, usually 10-14 days. This dressing is designed to naturally slough off. You may trim the excess mesh tape as it peels off. Incision may be briefly wet in a shower. Dry immediately by blotting with a clean, dry towel. Do not bath or swim until instructed by your doctor. Do not scratch, rub, or pick at the dressing. Do not apply any topical ointments or lotions until dressing is completely removed and/or instructed by your doctor. There may be a small piece of suture material at one end of your incision. Do not pull or trim this. If it is bothersome or catching on clothing, you may cover it with a band-aid. * Prevena- This is a large suction dressing covering your incision. This will help pull any excess drainage from the wound and allow your incision to heal properly. You may shower with this if you can keep the unit outside of the shower. If any bleeding or leakage is noted please call your doctor's office. This will remain on your incision for 7 days and then should be removed. This can be done yourself or by the home nursing staff if applicable. The entire unit is disposable once removed. Once removed, keep incision clean and dry. If redness or drainage is noted, please call your surgeon. FOLLOW UP VISIT: If appointment is not already scheduled: Please call [facility] to make a follow-up appointment for 2 weeks after your surgery at . Follow up with your Primary Care Provider in 1 week to have your blood pressure and blood sugars rechecked. Follow up with your Urologist in 1 week to have [place] Catheter removed. Current Hospital Diet Patient's current hospital diet: Diabetes Type 2 Diet Discharge Diet Recommended Diet: Diabetes Type 2 Diet Procedures Procedures Performed: left anterior TONNY Pending Studies Studies pending at discharge: no Laboratory Results Hemoglobin A1c Test 02/11/18 14:55 Range/Units Estimated Average Glucose 117 mg/dl Hemoglobin A1c 5.7 H 4.5-5.6 % Medical Emergencies . Who to Call and When: Medical Emergencies: If at any time you feel your situation is an emergency, please call 911 immediately. . Non-Emergent Contact Non-Emergency issues call your: Surgeon Call Non-Emergent contact if: temperature is above 101.5, your pain is not controlled, your pain is worsening, wound has increased drainage, wound has increased redness . "Provider Documentation" section prepared by Vineet Wooten. . [place] Drug Monitoring Program Search Results: patient reviewed within database, no issues identified
[2018-02-26] MEDS ORDERED: CIPR-255 PO (13:47)
[2018-02-26 14:16] VITALS: BP 168/67; PULSE 85; TEMP 36.9; O2SAT 97
== END 2018-02-26 16:15 | disposition home health service (06) | DRG 470 ==
LOC: C.ACU 09:49 → C.3E 15:38 → ENRESERV 16:21
PROVIDERS: ADMIT Orthopaedic Surgery; ATTEND Orthopaedic Surgery
PROC: 0SRB0JZ Replacement of Left Hip Joint with Synthetic Substitute, Open Approach (ICD-10-PCS; principal; 2018-02-24 12:15)
DX: M16.12 Unilateral primary osteoarthritis, left hip (principal); R73.9 Hyperglycemia, unspecified; T38.0X5A Adverse effect of glucocorticoids and synthetic analogues, initial encounter; N40.1 Benign prostatic hyperplasia with lower urinary tract symptoms; R33.9 Retention of urine, unspecified; R35.0 Frequency of micturition; R30.0 Dysuria; I10 Essential (primary) hypertension; Z79.899 Other long term (current) drug therapy